=== PATIENT | female | born 1985 | race Caucasian/White ===

== ENCOUNTER → 2017-12-20 | Outpatient (CLI) | payer BC, OTHER ==
--- NOTE | 2017-12-23 14:25 | EEG ---
ELECTROENCEPHALOGRAM REPORT DATE OF SERVICE: 12/20/2017. REASON FOR TESTING: Syncope. DESCRIPTION OF THE PROCEDURE: This EEG was performed using a 21 channel digital electroencephalograph, following international 10-20 system. DESCRIPTION OF THE RECORDING: From the beginning of the tracing, and with patient's eyes closed, the background rhythm was mostly consisting of 9 Hz alpha frequency in the posterior occipital leads. No obvious asymmetry is seen. Photic stimulation was performed with a minimal driving response seen. No pathological waves were elicited. Hyperventilation was not performed. The patient remains awake throughout the tracing. No epileptiform discharges were seen. Her EKG lead showed a regular rate and rhythm. INTERPRETATION: This awake EEG can be considered within normal limits. There was no asymmetry seen. No epileptiform discharges were noticed. The absence of epileptiform discharges does not rule out the diagnosis of epilepsy; therefore clinical correlation is recommended. MMSANDRAL / IJAspen: [id number] /
== END | disposition home or self-care (01) ==
LOC: NEUROMAIN 08:11
PROVIDERS: ATTEND Family Medicine
DX: R55 Syncope and collapse (principal)
CPT/HCPCS: 95816

== ENCOUNTER → 2018-01-02 | Outpatient (CLI) | payer BC, OTHER ==
--- NOTE | 2018-01-02 14:13 | US ---
EXAMINATION TYPE: US carotid duplex BILAT DATE OF EXAM: 01/02/2018 COMPARISON: NONE CLINICAL HISTORY: R09.89 symptoms and signs. Passing out per patient. EXAM MEASUREMENTS: RIGHT: Peak Systolic Velocity (PSV) cm/sec ----- Right CCA: 102.6 ----- Right ICA: 109.9 ----- Right ECA: 178.0 ICA/CCA ratio: 1.1 RIGHT: End Diastole cm/sec ----- Right CCA: 40.1 ----- Right ICA: 56.1 ----- Right ECA: 36.2 LEFT: Peak Systolic Velocity (PSV) cm/sec ----- Left CCA: 103.6 ----- Left ICA: 123.3 ----- Left ECA: 141.0 ICA/CCA ratio: 1.2 LEFT: End Diastole cm/sec ----- Left CCA: 42.6 ----- Left ICA: 48.5 ----- Left ECA: 21.2 VERTEBRALS (direction of flow): Right Vertebral: Antegrade Left Vertebral: Antegrade Rhythm: Normal Grayscale images show fairly moderate eccentric hyperechoic plaque at right carotid bulb with less pr ominent plaque at left carotid bulb. Increased peak systolic velocity is seen in both common carotid arteries. No suspicious increased velocity identified in either internal carotid artery. IMPRESSION: Moderate atherosclerotic change on the right without hemodynamically significant stenosi s clearly seen in either internal carotid artery. Increased velocity bilateral common carotid arter ies raises concern for underlying hypertension, correlate clinically. Criteria for Assigning % of Stenosis / Diameter reduction (Estimation based on the indirect measurements of the internal carotid artery velocities (ICA PSV). 1. Normal (no stenosis)=ICA PSV < 125 cm/s: ratio < 2.0: ICA EDV<40 cm/s. 2. Less than 50% stenosis=ICA PSV < 125 cm/s: ratio < 2.0: ICA EDV<40 cm/s. 3. 50 to 69% stenosis=ICA PSV of 125 to 230 cm/s: ration 2.0 ? 4.0: ICA EDV 40-100 cm/s. 4. Greater than 70% stenosis to near occlusion= ICA PSV > 230 cm/s: ratio > 4.0: ICA EDV > 100 cm/s. 5. Near occlusion= ICA PSV velocities may be low or undetectable: variable ratio and ICA EDV. 6. Total occlusion=unable to detect flow.
== END | disposition home or self-care (01) ==
LOC: RADUSWWP 13:43
PROVIDERS: ATTEND Family Medicine
DX: I65.21 Occlusion and stenosis of right carotid artery (principal); R93.8 Abnormal findings on diagnostic imaging of other specified body structures
CPT/HCPCS: 93880

== ENCOUNTER → 2018-09-03 | Outpatient (CLI) | payer BC, OTHER ==
--- NOTE | 2018-09-03 08:54 | US ---
EXAMINATION TYPE: US liver DATE OF EXAM: 09/03/2018 COMPARISON: CT from 2011 CLINICAL HISTORY: R74.8 elevated liver enzymes. Nausea and vomiting, elevated liver enzymes EXAM MEASUREMENTS: Liver Length: 16.9 cm Gallbladder Wall: 0.2 cm CBD: 0.3 cm Right Kidney: 10.2 x 4.3 x 4.6 cm Pancreas: visualized portions appear wnl Liver: wnl Gallbladder: no evidence of stones Evidence for sonographic Pierson's sign: no CBD: wnl Right Kidney: no evidence of hydronephrosis or mass Visualized pancreas is felt within normal limits. Visualized liver shows no worrisome mass or ductal dilatation. Liver size is prominent on images saved extending below inferior margin of right kidney. Gallbladder is seen without shadowing mobile gallstones. Limited images right kidney show no gross hy dronephrosis. IMPRESSION: Probable hepatomegaly. No suspicious focal intrahepatic mass or intrahepatic ductal dilat ation.
--- NOTE | 2018-09-03 14:12 | EEG ---
ELECTROENCEPHALOGRAM REPORT PROCEDURE DATE: 09/03/2018. ELECTROENCEPHALOGRAM (EEG) REPORT: TECHNIQUE: A routine 18 channel EEG was performed with video using the 10-20 international placement system. HISTORY: Blacking out spells. Patient states that she becomes dizzy, starts sweating and blacks out. CURRENT MEDICATIONS: Norvasc, vitamin E, vitamin D, multivitamin, control, loratadine. STUDY DURATION: 31 minutes. FINDINGS: BACKGROUND: The background activity consisted of 9-10 hertz rhythmic waveforms symmetrically seen over both posterior quadrants. ACTIVATION: Hyperventilation: Induced physiological slowing. PHOTIC STIMULATION: Symmetric driving seen. SLEEP: Drowsy. ABNORMALITIES: None. Please note that 1 channel of this EEG was dedicated to EKG. It demonstrated a sinus rhythm. IMPRESSION: Normal EEG. No epileptiform activity was present. No seizures were reported. MMODL / IJN: [id number] /
== END | disposition home or self-care (01) ==
LOC: RADUSMAIN 08:00
PROVIDERS: ATTEND Family Medicine
DX: R74.8 Abnormal levels of other serum enzymes (principal); R25.1 Tremor, unspecified
CPT/HCPCS: 76705; 95816

== ENCOUNTER → 2018-09-11 | Outpatient (CLI) | payer BC, OTHER ==
--- NOTE | 2018-09-12 10:43 | ECHOF ---
Referral Reason: MEASUREMENTS -------- HEIGHT: 157.5 cm WEIGHT: 53.1 kg BP: IVSd: 0.9 cm (0.6 - 1.1) LVIDd: 4.4 cm (3.9 - 5.3) LVPWd: 1.1 cm (0.6 - 1.1) IVSs: 1.4 cm LVIDs: 2.5 cm LVPWs: 1.6 cm LAESV Index (A-L): 18.67 ml/m Ao Diam: 2.3 cm (2.0 - 3.7) AV Cusp: 1.7 cm (1.5 - 2.6) LA Diam: 1.7 cm (2.7 - 3.8) MV EXCURSION: 17.310 mm (> 18.000) MV EF SLOPE: 103 mm/s (70 - 150) EPSS: 0.3 cm MV E Guillermo: 0.75 m/s MV DecT: 220 ms MV A Guillermo: 0.57 m/s MV E/A Ratio: 1.31 RAP: 5.00 mmHg RVSP: 23.28 mmHg FINDINGS -------- Sinus rhythm. This was a technically good study. The left ventricular size is normal. Left ventricular wall thickness is normal. Overall left vent ricular systolic function is normal with, an EF between 55 - 60 %. The right ventricle is normal in size. Normal LA size by volume 22+/-6 ml/m2. The right atrial size is normal. Interatrial and interventricular septum intact. The aortic valve is trileaflet and appears structurally normal. There is trace mitral regurgitation. Trace tricuspid regurgitation present. The right ventricular systolic pressure, as measured by Dopp ler, is 23.28mmHg. There is no pulmonic regurgitation present. The aortic root size is normal. Normal inferior vena cava with normal inspiratory collapse consistent with estimated right atrial pre ssure of 5 mmHg. There is no pericardial effusion. CONCLUSIONS -------- 1. Sinus rhythm. 2. This was a technically good study. 3. The left ventricular size is normal. 4. Left ventricular wall thickness is normal. 5. Overall left ventricular systolic function is normal with, an EF between 55 - 60 %. 6. The right ventricle is normal in size. 7. Normal LA size by volume 22+/-6 ml/m2. 8. The right atrial size is normal. 9. Interatrial and interventricular septum intact. 10. The aortic valve is trileaflet and appears structurally normal. 11. There is trace mitral regurgitation. 12. Trace tricuspid regurgitation present. 13. The right ventricular systolic pressure, as measured by Doppler, is 23.28mmHg. 14. There is no pulmonic regurgitation present. 15. The aortic root size is normal. 16. Normal inferior vena cava with normal inspiratory collapse consistent with estimated right atrial pressure of 5 mmHg. 17. There is no pericardial effusion. BIRDCAGE ASSEMBLER: Jessa Hayden RDCS
== END | disposition home or self-care (01) ==
LOC: RADECHMAIN 13:54
PROVIDERS: ATTEND Family Medicine
DX: I11.9 Hypertensive heart disease without heart failure (principal)
CPT/HCPCS: 93306

== ENCOUNTER → 2018-10-14 | Outpatient (CLI) | payer BC, OTHER ==
--- NOTE | 2018-10-14 22:34 | MR ---
EXAMINATION TYPE: MR brain wo/w con DATE OF EXAM: 10/14/2018 COMPARISON: Prior MRI brain June 16, 2013. HISTORY: Recurrent syncope TECHNIQUE: Multiplanar, multisequence images of the brain and brainstem is performed without and with IV contras t, utilizing 5.5 mL intravenous Gadavist . FINDINGS: Diffusion weighted images demonstrate no evidence of a recent infarct or other diffusion ab normality. There is no worrisome extra-axial fluid collection. Ventricles and sulci are normal in si ze. Scattered foci of T2 hyperintensity are seen throughout the white matter bilaterally. There are a pproximately 40-50 scattered lesions redemonstrated. Midline structures demonstrate normal morphology. The craniocervical junction appears within normal limits. Post contrast images demonstrate no abnormal enhancement. The dural venous sinuses appear pa tent. The visualized sinuses are clear and the globes are intact. IMPRESSION: Moderate nonspecific white matter changes significant for patient's chronologic age are r edemonstrated. No enhancing lesions are seen. No significant change from prior MRI.
== END | disposition home or self-care (01) ==
LOC: RADMRIMAIN 13:31
PROVIDERS: ATTEND Psychiatry & Neurology Neurology
DX: R90.89 Other abnormal findings on diagnostic imaging of central nervous system (principal); R55 Syncope and collapse
CPT/HCPCS: 70553; A9585

== ENCOUNTER 2019-03-16 12:31 | Day surgery (SDC) | payer BC, OTHER ==
[2019-03-12 09:05] VITALS: BMI 22.6
[~2019-03-16 12:31] MED LIST: LACTATED RINGERS 1,000 ML IV SCH; LIDOCAINE 1% 20 ML VIAL (10MG/ML) FOR IV START INTRADERMA PRN; SODIUM CHLORIDE 0.9% 1,000 ML IV SCH
[2019-03-16] MEDS ORDERED: SODIUM CHLORIDE 0.9% 500 ML 500 ML IV ONE (13:15)
[2019-03-16 13:21] VITALS: RESP 16; TEMP 99.6
[2019-03-16] MEDS ORDERED: NITROGLYCERIN SL TABS 0.4 MG TAB SUBLINGUAL ONE ×3 (13:45→15:08)
[2019-03-16 15:35] VITALS: BP 111/69; PULSE 69
--- NOTE | 2019-03-16 18:18 | P.PCN ---
Preoperative Diagnosis: Diagnosis recurrent syncope Twelve-lead EKG shows normal sinus rhythm Tilt table test per protocol Baseline blood pressure 107/54 mmHg Baseline heart rate 75 beats a minute Patient was tilted upright at an angle of 70 per protocol after receiving sublingual nitroglycerin in the supine position About 18 minutes into upright tilting she expressed her drop in blood pressure to 81 mmHg and thereafter to 68 and then 53 mmHg. Lowest heart rate recorded was 50 beats a minute The patient came lightheaded and felt nauseous. We'll sweaty and became syncopal She was laid supine on her blood pressure normalized This reproduced her clinical symptoms almost 90% Impression Normal 20 ECG Neurocardiogenic syncope Suggest Start Florinef 0.1 mg by mouth daily Increase fluid and salt intake Isometric strengthening exercises Hold off on EP study for now
== END 2019-03-16 15:47 | disposition home or self-care (01) ==
LOC: CATHEP 12:31
PROVIDERS: ATTEND Internal Medicine Clinical Cardiac Electrophysiology
DX: R55 Syncope and collapse (principal)
CPT/HCPCS: 81025; 93660

== ENCOUNTER → 2021-09-25 | Outpatient (CLI) | payer BC, OTHER | END | disposition home or self-care (01) | LOC: LABWHC1 09:41 | PROVIDERS: ATTEND Physician Assistant Medical | DX: I95.1 Orthostatic hypotension (principal) | CPT/HCPCS: 36415; 82533; 83520 ==

== ENCOUNTER → 2021-10-19 | Outpatient (CLI) | payer BC ==
--- NOTE | 2021-10-20 02:13 | MR ---
EXAMINATION TYPE: MR brain wo/w con DATE OF EXAM: 10/19/2021 COMPARISON: 10/14/2018 HISTORY: White matter disease, brain fog, fatigue, headaches, memory issues. CONTRAST: Standard multiplanar, multisequence MRI departmental protocol images were obtained without contrast a nd with 6 mL intravenous Gadavist gadolinium contrast. Ventricles have normal size. There is no mass effect or midline shift. No sign of intracranial hemorr meredith. Diffusion images show no evidence of an acute infarct. Corpus callosum appears intact. On the T2 and FLAIR images there are numerous white matter high signal foci in both cerebral hemisphe res that measure up to 8 mm. Total number is approximately 25. The brainstem is intact. Sella turcica appears normal. There is relative sparing of the corpus callosum. There is no evidence of orbital ma ss. Contrast images show no pathologic enhancement. There is normal enhancement of the venous sinuses. IMPRESSION: Multiple white matter lesions could relate to demyelinating disease or microvascular ischemia and ove rall not significantly different than last exam. No evidence of cortical infarct. No evidence of any significant Matter disease compared to the old exam.
== END | disposition home or self-care (01) ==
LOC: RADMRIMAIN 09:26
PROVIDERS: ATTEND Physician Assistant Medical
DX: R90.82 White matter disease, unspecified (principal)
CPT/HCPCS: 70553; A9585

== ENCOUNTER → 2021-10-20 | Outpatient (CLI) | payer BC ==
--- NOTE | 2021-10-20 10:40 | CT ---
EXAMINATION TYPE: CT abdomen wo/w con DATE OF EXAM: 10/20/2021 COMPARISON: CT March 05, 2011 HISTORY: high catecholamine level in urine CT DLP: 395.4 mGycm Automated exposure control for dose reduction was used. TECHNIQUE: Helical acquisition of images was performed from the lung bases through the top of iliac crest to include entire abdomen. CONTRAST: Performed with Oral Contrast and without and with IV Contrast, patient injected with 100 mL of Isovue 300. Adrenal glands protocol. FINDINGS: LUNG BASES: No significant abnormality is appreciated. LIVER/GB: Stable hepatomegaly. No new biliary dilatation. PANCREAS: No significant abnormality is seen. SPLEEN: No significant abnormality is seen. ADRENALS: Adrenal glands are normal in size without suspicious solid mass. KIDNEYS: No renal calculi on the noncontrast images. Symmetric cortical medullary uptake and excretio n without hydronephrosis. There are 2 right renal arteries. BOWEL: Patient has little intra-abdominal fat making evaluation slightly suboptimal. Oral contrast d oes not reach colonic level making evaluation distal bowel slightly suboptimal. No suspicious small o r large bowel dilatation LYMPH NODES: No significant abnormality is seen. OSSEOUS STRUCTURES: Slight scoliotic curvature redemonstrated. FREE AIR: No free air is visualized. OTHER: Variant branching off the abdominal aorta with suspected left gastric origin directly from the aorta. Mild calcified plaque in the distal abdominal aorta extends into iliac branch vessels. IMPRESSION: No adrenal masses are evident.
== END | disposition home or self-care (01) ==
LOC: RADCTMAIN 07:48
PROVIDERS: ATTEND Family Medicine
DX: R82.5 Elevated urine levels of drugs, medicaments and biological substances (principal)
CPT/HCPCS: 74170; Q9967